=== PATIENT | male | born 1970 | race Hispanic/Latino ===

== ENCOUNTER 2022-11-02 18:17 | Emergency (ER) | payer OTHER ==
[2022-11-02] MEDS ORDERED: Ibuprofen 200 MG TAB ONE (20:00)
== END 2022-11-02 20:32 | disposition home or self-care (01) ==
LOC: ERS 18:17
DX: M79.671 Pain in right foot (principal); M25.511 Pain in right shoulder; V89.2XXA Person injured in unspecified motor-vehicle accident, traffic, initial encounter